=== PATIENT | female | born 1995 | race Hispanic/Latino ===

== ENCOUNTER 2017-11-23 13:41 | Inpatient (IN) | payer MEDICAID, OTHER ==
[2017-11-23] MEDS: Lactated Ringer's 1,000 ML IV SCH ×2 (14:10→14:54)
[2017-11-23 14:11] VITALS: BMI 35.1
[2017-11-23] MEDS ORDERED: Oxytocin 30 units/LR 500ML 30 U/500 ML BAG IV SCH ×2 (14:30→16:58)
[2017-11-23] MEDS ORDERED: Lactated Ringer's 1,000 ML IV SCH (14:30)
[2017-11-23 15:42] LABS: BASO % 0.4 % (0.0-2.0); EOS # 0.4 K/uL (0.0-0.7); EOS % 3.8 % (0.0-4.0); HEMOGLOBIN 11.8 g/dL (12.0-16.0); LYMPH # 1.9 K/uL (1.0-4.3); LYMPH % 17.8 % (20.0-40.0); MEAN CELL VOLUME 81.8 fl (81.0-99.0); MEAN CORPUSCULAR HEMOGLOBIN 26.7 pg (27.0-31.0); MEAN CORPUSCULAR HGB CONC 32.6 g/dL (33.0-37.0); MEAN PLATELET VOLUME 11.6 fl (7.2-11.7); MONO # 0.6 K/uL (0.0-0.8); MONO % 5.6 % (0.0-10.0); NEUT # 7.9 K/uL (1.8-7.0); NEUT % 72.4 % (50.0-75.0); RBC 4.43 Mil/uL (3.80-5.20); RED CELL DISTRIBUTION WIDTH 15.9 % (11.5-14.5); WHITE BLOOD COUNT 10.9 K/uL (4.8-10.8)
--- NOTE | 2017-11-23 16:05 | OBADHP ---
Datetime: 11/23/2017 15:50 Admit Comment, IP Provider: Presents in active labor prep for vaginal delivery Pelvic Type - PN: Adequate Extremities - PN: Normal Abdomen - PN: Normal Back - PN: Normal Breast - PN: Normal Lungs - PN: Normal Heart - PN: Normal Thyroid - PN: Normal Neurologic - PN: Normal HEENT - PN: Normal General - PN: Normal Presentation-Admit: Vertex FHR - Baseline A Provider: 130 Membranes, Provider: Intact Contraction Comments Provider: every 5 minutes Gestation - Est Wks by US: 38.0 Vital Signs Provider: Reviewed IP Chief Complaint: Uterine contractions NICHD Variability Prov Fetus A: Moderate 6-25bpm NICHD Accel Fetus A IP Provider: 10X10 FHR Category Provider Fetus A: Category I NICHD Decel Fetus A IP Provider: None Dilatation, Provider: 5 Effacement, Provider: 90 Station, Provider: -2 Genitourinary Exam: Normal DTRs - PN: Normal EGA AdmitDate IP: 38.4 IP Adm Impression: Term, intrauterine IP Admit Plan: Admit to unit
[2017-11-23] MEDS ORDERED: Fentanyl/Bupivacaine HCl 250 ML EPI ONE (16:34)
[2017-11-23] MEDS ORDERED: Oxycodone/Acetaminophen 5/325 mg Tab PO PRN (18:05)
[2017-11-24] MEDS: Prenatal Multivit/Folic Acid/Iron Tab PO SCH (09:00)
[2017-11-24 09:18] LABS: BASO % 0.4 % (0.0-2.0); EOS # 0.6 K/uL (0.0-0.7); EOS % 5.2 % (0.0-4.0); LYMPH # 2.6 K/uL (1.0-4.3); LYMPH % 23.6 % (20.0-40.0); MEAN CELL VOLUME 81.1 fl (81.0-99.0); MEAN CORPUSCULAR HEMOGLOBIN 27.4 pg (27.0-31.0); MEAN CORPUSCULAR HGB CONC 33.8 g/dL (33.0-37.0); MEAN PLATELET VOLUME 10.9 fl (7.2-11.7); MONO # 0.8 K/uL (0.0-0.8); MONO % 7.6 % (0.0-10.0); NEUT # 6.9 K/uL (1.8-7.0); NEUT % 63.2 % (50.0-75.0); NRBC % 0.1 % (0.0-0.0); RBC 3.66 Mil/uL (3.80-5.20); RED CELL DISTRIBUTION WIDTH 15.9 % (11.5-14.5)
--- NOTE | 2017-11-24 09:24 | OBPPN ---
Datetime: 11/24/2017 09:19 PP Pain Prov: Within normal limits PP Flatus Prov: Yes PP BM Prov: No PP Breasts Prov: Normal PP Heart Prov: Normal PP Lungs Prov: Normal PP Abdomen/Uterus Prov: Normal PP Lochia Prov: Normal PP Vulva/Perineum Prov: Normal PP CVA Tenderness Prov: Normal PP Extremities Prov: Normal PP Progress Prov: Normal PP Impression Prov: Normal progression PP Plan Prov: Continue present management PP Progress Note Prov: The patient desires a cricumsion and if stable will be d/c to home with f/u w rito soares IP PP Procedures: Rhogam Vital Signs Provider PP: Reviewed
--- NOTE | 2017-11-24 09:28 | OBDCSUM ---
Datetime: 11/24/2017 09:24 Discharged to, Provider: Home Follow up at, Provider: Dr Eron Villarreal Disch Instr Activity: Normal activity Disch Instr Diet: Regular Discharge Diet restrict Prov: breast feeding provision Discharge Instructions, Provider: Routine instructions given Discharge Diagnosis, Provider: Term Delivered Follow up in weeks, Provider: 6 weeks Disch Referrals: None Contraception discussed, Prov: Yes Disch Activity Restrictions: No exercising; No sexual activity; Nothing in vagina - [place], [place] Discharge Comment, Provider: Patient advised about depression Contraception after Delivery: Undecided
[2017-11-25 06:29] LABS: BASO # 0.1 K/uL (0.0-0.2); BASO % 0.8 % (0.0-2.0); EOS # 0.6 K/uL (0.0-0.7); EOS % 6.1 % (0.0-4.0); HEMOGLOBIN 9.3 g/dL (12.0-16.0); LYMPH # 3.1 K/uL (1.0-4.3); LYMPH % 31.5 % (20.0-40.0); MEAN CELL VOLUME 82.4 fl (81.0-99.0); MEAN CORPUSCULAR HEMOGLOBIN 27.1 pg (27.0-31.0); MEAN CORPUSCULAR HGB CONC 32.9 g/dL (33.0-37.0); MEAN PLATELET VOLUME 10.7 fl (7.2-11.7); MONO # 0.7 K/uL (0.0-0.8); NEUT # 5.4 K/uL (1.8-7.0); NEUT % 54.6 % (50.0-75.0); RBC 3.44 Mil/uL (3.80-5.20); WHITE BLOOD COUNT 9.9 K/uL (4.8-10.8)
[2017-11-25] MEDS: Prenatal Multivit/Folic Acid/Iron Tab PO SCH (09:36)
[2017-11-25 19:56] VITALS: BP 114/58; PULSE 63; RESP 19; TEMP 97.8; O2SAT 99
== END 2017-11-25 15:25 | disposition home or self-care (01) | DRG 373 ==
LOC: H.EROB2 13:41 → H.L&D 14:25 → H.OB/GYN 21:41
PROVIDERS: ADMIT Specialist; ATTEND Specialist
PROC: 10E0XZZ Delivery of Products of Conception, External Approach (ICD-10-PCS; principal; 2017-11-23)
PROC: 4A1HXCZ Monitoring of Products of Conception, Cardiac Rate, External Approach (ICD-10-PCS; 2017-11-23)
DX: O80 Encounter for full-term uncomplicated delivery (principal); Z37.0 Single live birth; Z3A.38 38 weeks gestation of pregnancy